=== PATIENT | female | born 1930 | race Caucasian/White ===

== ENCOUNTER 2018-10-08 21:41 | Emergency (ER) | payer MEDICARE, BC ==
[2018-10-08] MEDS ORDERED: Diltiazem 25 MG/5 ML SDV IVPUSH ONE (22:07)
--- NOTE | 2018-10-08 22:11 | EDM.PDOC ---
ED HPI GENERAL MEDICAL PROBLEM - General Chief Complaint: Chest Pain Stated Complaint: CHEST PAIN Time Seen by Provider: 10/08/18 21:50 Source of Information: Reports: Patient, EMS, Family History Limitations: Reports: No Limitations - History of Present Illness INITIAL COMMENTS - FREE TEXT/NARRATIVE: 88-year-old female with no prior history of cardiac issues has been feeling fatigued and short of breath with activity over the past 48 hours. It's unusual for her as she is usually very active. Tonight she was watching TV, and developed a burning sensation in the center of her chest which lasted more than 15 minutes so her called the ambulance. They gave her aspirin and brought her to the emergency room, she is asymptomatic on arrival but is in atrial fibrillation with RVR. She denies any shortness of breath, pain, nausea or vomiting or diaphoresis. Onset: Unknown/Unsure (Fatigue started yesterday, chest pain within the last 2 hours) Location: Reports: Chest (Substernal burning) Associated Symptoms: Reports: Shortness of Breath (With activity), Weakness, Other (Fatigue) - Related Data Allergies Allergy/AdvReac Type Severity Reaction Status Date / Time simvastatin Allergy Cannot Verified 10/08/18 21:45 Remember Sulfa (Sulfonamide Allergy Rash Verified 10/08/18 21:45 Antibiotics) atorvastatin [From Lipitor] AdvReac Muscle Verified 10/08/18 21:45 Aches Home Meds: Home Meds Levothyroxine 88 mcg PO DAILY 10/02/13 [History] Calcium Carbonate/Vitamin D3 [Calcium 600 + Vit D 200] 1 each PO DAILY 03/29/16 [History] Flaxseed Oil [Flaxseed] 1,000 mg PO DAILY 03/29/16 [History] [place]-3 Fatty Acids [Fish Oil] 1,000 mg PO DAILY 03/29/16 [History] Oxymetazoline [Nasal Decongestant] 2 spray ESTELLE DAILY PRN 03/29/16 [History] Cholecalciferol (Vitamin D3) [Vitamin D3] 1,000 units PO BID 03/31/16 [History] Niacinamide [Niacin] 500 mg PO BID 03/31/16 [History] Past Medical History HEENT History: Reports: Hard of Hearing Cardiovascular History: Reports: High Cholesterol, Hypertension Other Cardiovascular History: SLOW HEART RATE Gastrointestinal History: Reports: GERD Musculoskeletal History: Reports: Arthritis, Osteoporosis Endocrine/Metabolic History: Reports: Hypothyroidism, Osteoporosis - Infectious Disease History Infectious Disease History: Reports: Chicken Pox, Measles, Mumps, Pertussis ( Whooping Cough) - Past Surgical History GI Surgical History: Reports: Colonoscopy, EGD Musculoskeletal Surgical History: Reports: Carpal Tunnel, Other (See Below) Social & Family History - Tobacco Use Smoking Status *Q: Never Smoker - Caffeine Use Caffeine Use: Reports: Coffee - Recreational Drug Use Recreational Drug Use: No ED ROS GENERAL - Review of Systems Review Of Systems: See Below Constitutional: Reports: Malaise. Denies: Fever, Chills HEENT: Reports: No Symptoms Respiratory: Reports: Shortness of Breath (Especially with activity) Cardiovascular: Reports: Chest Pain (Substernal chest burning over the past 2 hours, lasted 20-30 minutes) GI/Abdominal: Reports: No Symptoms : Reports: No Symptoms Skin: Reports: No Symptoms. Denies: Diaphoresis Neurological: Reports: No Symptoms. Denies: Dizziness, Headache Psychiatric: Reports: No Symptoms ED EXAM, GENERAL - Physical Exam Exam: See Below Exam Limited By: No Limitations General Appearance: Alert, No Apparent Distress Eye Exam: Bilateral Eye: Normal Inspection Throat/Mouth: Normal Inspection Head: Atraumatic Neck: Normal Inspection Respiratory/Chest: No Respiratory Distress, Lungs Clear Cardiovascular: Tachycardia, Systolic Murmur, Irregularly Irregular GI/Abdominal: Soft, Non-Tender Extremities: Normal Inspection. No: Pedal Edema Neurological: Alert, Oriented, No Motor/Sensory Deficits Psychiatric: Normal Affect, Normal Mood Skin Exam: Warm, Dry EKG INTERPRETATION EKG Date: 10/08/18 Time: 22:15 Rhythm: A-Fib Rate (Beats/Min): 132 Course - Vital Signs Last Recorded V/S: Last Vital Signs Temp 96.7 F 10/08/18 21:44 Pulse 103 H 10/09/18 00:00 Resp 22 H 10/08/18 23:45 BP 111/57 L 10/09/18 00:00 Pulse Ox 93 L 10/08/18 23:45 - Orders/Labs/Meds Orders: Active Orders 24 hr Category Date Time Status EKG Documentation Completion [RC] ASDIRECTED Care 10/08/18 22:08 Active EKG 12 Lead [EK] Routine Ther 10/08/18 22:07 Ordered Labs: Laboratory Tests 10/08/18 10/08/18 Range/Units 22:07 22:07 WBC 8.0 (4.5-11.0) K/uL RBC 4.71 (3.30-5.50) M/uL Hgb 14.5 (12.0-15.0) g/dL Hct 43.5 (36.0-48.0) % MCV 92 (80-98) fL MCH 31 (27-31) pg MCHC 33 (32-36) % Plt Count 177 (150-400) K/uL Neut % (Auto) 52 (36-66) % Lymph % (Auto) 29 (24-44) % [place] % (Auto) 17 H (2-6) % Eos % (Auto) 2 (2-4) % Baso % (Auto) 0 (0-1) % Sodium 141 (140-148) mmol/L Potassium 4.1 (3.6-5.2) mmol/L Chloride 104 (100-108) mmol/L Carbon Dioxide 27 (21-32) mmol/L Anion Gap 9.8 (5.0-14.0) mmol/L BUN 23 H (7-18) mg/dL Creatinine 1.2 H (0.6-1.0) mg/dL Est Cr Clr Drug Dosing 25.63 mL/min Estimated GFR (MDRD) 42 L (>60) Glucose 118 H (74-106) mg/dL Calcium 9.9 (8.5-10.1) mg/dL Total Bilirubin 0.5 (0.2-1.0) mg/dL AST 20 (15-37) U/L ALT 25 (12-78) U/L Alkaline Phosphatase 84 (46-116) U/L Troponin I 0.019 (0.000-0.056) ng/mL Total Protein 7.0 (6.4-8.2) g/dL Albumin 3.4 (3.4-5.0) g/dL Globulin 3.6 H (2.3-3.5) g/dL Albumin/Globulin Ratio 0.9 L (1.2-2.2) Meds: Medications Discontinued Medications Generic Name Dose Route Start Last Admin Trade Name Freq PRN Reason Stop Dose Admin Diltiazem HCl 20 mg 10/08/18 22:07 10/08/18 22:16 Diltiazem IVPUSH 10/08/18 22:08 20 mg ONETIME ONE Administration Diltiazem HCl 125 mg/ Dextrose 125 mls @ 5 mls/hr 10/08/18 23:45 10/09/18 00: 05 /Water IV 5 mg/hr TITRATE SHAYLA 5 mls/hr Administration Protocol 5 MG/HR - Re-Assessments/Exams Free Text/Narrative Re-Assessment/Exam: 10/08/18 23:12 An IV was started and the patient was given 20 mg of IV Cardizem, a portable chest x-ray was taken, and EKG done, CBC CMP and troponin obtained. 10/08/18 23:16 After the IV Cardizem she had excellent rate control for the next half hour and was asymptomatic. Chest x-ray showed mild cardiomegaly. Troponin was 0.01. Within 45 minutes her rate started to increase and she continued to be in atrial fibrillation. 10/09/18 02:02 An IV Cardizem drip was started, and consultation with the hospitalist service in [place] regarding transfer as we have no ICU beds. She was kindly accepted and transferred by EMS. Departure - Departure Time of Disposition: 00:24 Disposition: DC/Tfer to Acute Hospital 02 Reason for Transfer *Q: Other Condition: Fair Clinical Impression: Acute coronary syndrome, Atrial fibrillation with RVR Referrals: Tyrese Damico Sr, MD [Primary Care Provider] - Forms: ED Department Discharge Care Plan Goals: Patient was transferred to [facility] for admission for rate control of atrial fibrillation with rapid ventricular response, and rule out [place] with cardiology consultation. - My Orders Last 24 Hours: My Active Orders 10/08/18 22:07 EKG 12 Lead [EK] Routine 10/08/18 22:08 EKG Documentation Completion [RC] ASDIRECTED - Assessment/Plan Last 24 Hours: My Active Orders 10/08/18 22:07 EKG 12 Lead [EK] Routine 10/08/18 22:08 EKG Documentation Completion [RC] ASDIRECTED
--- NOTE | 2018-10-08 22:52 | CRLCR ---
INDICATION: Chest pressure, pain, new onset AFib TECHNIQUE: Chest 1 view. COMPARISON: None FINDINGS: Cardiovascular and mediastinum: Mild cardiomegaly without congestive changes. Mediastinum is within normal limits. Lungs and pleural space: Lungs are clear. No sign of infiltrate or mass. No sign of pleural effusion. No pneumothorax. Bones and soft tissues: No significant findings. IMPRESSION: No acute pulmonary or cardiac abnormalities. Mild cardiomegaly. Dictated by Andrea García MD @ 10/08/2018 10:50:06 PM Dictated by: Andrea García MD @ 10/08/2018 22:50:10 (Electronically Signed)
[2018-10-09 00:21] VITALS: BP 111/57
== END 2018-10-09 00:24 ==
LOC: JP.ED 21:41
DX: I24.9 Acute ischemic heart disease, unspecified (principal); I48.91 Unspecified atrial fibrillation; I10 Essential (primary) hypertension; E03.9 Hypothyroidism, unspecified; Z88.8 Allergy status to other drugs, medicaments and biological substances; Z88.2 Allergy status to sulfonamides
CPT/HCPCS: 36415; 71045; 80053; 84484; 85025; 93005; 96374; 99285; J3490; J7060; 93010